=== PATIENT | male | born 1990 | race Caucasian/White ===

== ENCOUNTER 2021-04-14 09:38 | Emergency (ER) | payer MEDICAID ==
[~2021-04-14] VITALS: Ht 175.3 cm; Wt 140.6 kg
[2021-04-14 09:45] VITALS: BP 160/68
--- NOTE | 2021-04-14 09:45 | NUR ---
PT AMBULATED TO BED 02, DR RAY EXAMINING PT
--- NOTE | 2021-04-14 10:04 | NUR ---
covid quirino and covid marisel taken bedside. RN walked swabs over to lab
--- NOTE | 2021-04-14 10:10 | NUR ---
30 MALE BIB SLEF C/O COVID-19 SYMPTOMS. PT REPORTS SUBJECTIVE FEVER, CONGESTION, PHLEGM, AND DRY COUGH SINCE TUESDAY. DENIES ANY PAIN. CURRENTLY DENIES ANY SOB AND FEVER. PT STATES HE IS STILL EXPERICNING A COUGH AND WANTS TO ENSURE HE IS COVID NEGATIVE MEDHX: DENIES NKA
[2021-04-14] MEDS ORDERED: ACET-10509 PO (10:42)
[2021-04-14 10:58] VITALS: BP 160/68
== END 2021-04-14 10:58 | disposition home or self-care (01) ==
LOC: MED 09:38
DX: J06.9 Acute upper respiratory infection, unspecified (principal); Z20.822 Contact with and (suspected) exposure to COVID-19
CPT/HCPCS: 87426; 99283; U0003